=== PATIENT | male | born 1950 | race Caucasian/White ===

== ENCOUNTER 2021-12-31 15:24 | Emergency (ER) | payer BC ==
[~2021-12-31] VITALS: Ht 175.3 cm; Wt 99.8 kg
[2021-12-31 15:42] VITALS: BP_SYST 129
[2021-12-31] MEDS ORDERED: NAPR-1172 PO (16:50)
[2021-12-31 17:02] VITALS: BP_SYST 134
== END 2021-12-31 17:00 | disposition home or self-care (01) ==
LOC: SED 15:24
DX: S43.402A Unspecified sprain of left shoulder joint, initial encounter (principal); M25.522 Pain in left elbow; E11.9 Type 2 diabetes mellitus without complications; I10 Essential (primary) hypertension; E78.5 Hyperlipidemia, unspecified; Z79.899 Other long term (current) drug therapy; X58.XXXA Exposure to other specified factors, initial encounter; Y93.89 Activity, other specified; Y92.89 Other specified places as the place of occurrence of the external cause; Y99.8 Other external cause status
CPT/HCPCS: 73030; 99283